=== PATIENT | female | born 1970 | race Caucasian/White ===

== ENCOUNTER 2017-03-11 13:03 | Emergency (ER) | payer OTHER ==
--- NOTE | 2017-03-11 14:40 | UC ---
Respiratory Complaint HPI - HPI Summary HPI Summary: 46 year old female presents with complains of fever, chills, back and neck pain. - History of Current Complaint Stated Complaint: UPPER RESPIRATORY,NECK/BACK PAIN Time Seen by Provider: 03/11/17 14:40 Hx Obtained From: Patient Hx Last Menstrual Period: 06/19/16 Onset/Duration: Sudden Onset Severity Initially: Moderate Severity Currently: Moderate Pain Scale Used: 0-10 Numeric - 5 Character: Cough: Productive Alleviating Factors: Upright Position Associated Signs And Symptoms: Positive: Fever, Chills, Nasal Congestion, Sinus Discomfort - Allergies/Home Medications Allergies/Adverse Reactions: Allergies Allergy/AdvReac Type Severity Reaction Status Date / Time Latex Allergy Severe Swelling Verified 03/11/17 14:35 PMH/Surg Hx/FS Hx/Imm Hx Previously Healthy: Yes - Surgical History Surgical History: Yes Surgery Procedure, Year, and Place: T&A 20 YRS AGO, 2 C SECTIONS, GALL BLADDDER REMOVAL. TUBAL LIGATION, R breast lumpectomy-benign - Family History Known Family History: Positive: Cardiac Disease, Hypertension - Social History Alcohol Use: None Substance Use Type: None Smoking Status (MU): Heavy Every Day Tobacco Smoker Type: Cigarettes Amount Used/How Often: 1/2 PK DAILY Length of Time of Smoking/Using Tobacco: since age 18 Have You Smoked in the Last Year: Yes Review of Systems Constitutional: Negative Skin: Negative Eyes: Negative ENT: Sore Throat, Nasal Discharge, Sinus Congestion, Sinus Pain/Tenderness Respiratory: Negative Cardiovascular: Negative Gastrointestinal: Negative Genitourinary: Negative Motor: Negative Neurovascular: Negative Musculoskeletal: Negative Neurological: Negative Psychological: Negative All Other Systems Reviewed And Are Negative: Yes Physical Exam Triage Information Reviewed: Yes Vital Signs Reviewed: Yes Eye Exam: Normal ENT: Positive: Pharyngeal erythema, Nasal congestion, Nasal drainage, Sinus tenderness Dental Exam: Normal Neck exam: Normal Neck: Positive: 1 Respiratory: Positive: Wheezing Cardiovascular Exam: Normal Abdominal Exam: Normal Musculoskeletal Exam: Normal Neurological Exam: Normal Psychological Exam: Normal Skin Exam: Normal Respiratory Course/Dx - Differential Dx/Diagnosis Provider Diagnoses: sinusitis. fever. chills Discharge - Discharge Plan Condition: Stable Disposition: HOME Prescriptions: Azithromyxin EMILY (NF) [Z-Emily (Zithromax) 250 mg tabs #6] 2 tab PO .TODAY, THEN 1 DAILY #6 tab Guaifenesin-Codeine [Cheratussin AC] 1 syp PO Q8H PRN #120 ml MDD 15 ml PRN Reason: Cough LoraTADine TAB(NF) [Claritin 10 MG TAB(NF)] 10 mg PO DAILY #30 tab Methylprednisolone [Medrol Dosepak 4 MG*] 4 mg PO .SEE EMILY INSTRUCTION #21 tab Patient Education Materials: Sinusitis (ED) Referrals: No Primary Care Phys,NOPCP [Primary Care Provider] -
[2017-03-11 14:43] VITALS: BP 121/75
== END 2017-03-11 15:14 | disposition home or self-care (01) ==
LOC: UCCORT 13:03
DX: J32.9 Chronic sinusitis, unspecified (principal); R50.9 Fever, unspecified; Z90.49 Acquired absence of other specified parts of digestive tract; Z91.040 Latex allergy status; F17.210 Nicotine dependence, cigarettes, uncomplicated
CPT/HCPCS: 87502; 99212; G0463